=== PATIENT | female | born 1975 | race Caucasian/White ===

== ENCOUNTER 2018-02-11 13:08 | Emergency (ER) | payer OTHER ==
[2018-02-11 13:59] VITALS: RESP 18
[2018-02-11] MEDS ORDERED: ONDANSETRON 4 MG/2 ML VIAL IVP STA (14:09)
[2018-02-11] MEDS ORDERED: SODIUM CHLORIDE 0.9% 1,000 ML IV STA (14:09)
[2018-02-11] MEDS ORDERED: KETOROLAC 30 MG/ML 1 ML VIAL IVP STA (14:11)
--- NOTE | 2018-02-11 14:27 | ED ---
Abdominal Pain HPI - General Chief Complaint: Abdominal Pain Stated Complaint: flank/back pain Time Seen by Provider: 02/11/18 14:02 Source: patient, RN notes reviewed Mode of arrival: ambulatory Limitations: no limitations - History of Present Illness Initial Comments: This a 42-year-old female presents emergency Department chief complaint of left flank pain. Patient states started on Sunday that she was just constipated so she took some magnesium citrate she did go the bathroom states that she did not have complete relief of her symptoms she has not been about bowel movements stents. Patient understood care yesterday gets felt nauseated and flank pain. She had a urinalysis given Zofran upon discharge. Patient states that she's had no fever no chills no dysuria no hematuria. She's had a prior tubal ligation no other abdominal surgeries. Patient has a chest pain or shortness of breath. - Related Data Previous Rx's Medication Instructions Recorded Hydrocodone/Acetaminophen [[place] 1 tab PO Q6HR PRN #12 tab 02/11/18 5-325] Ondansetron Odt [Zofran Odt] 4 mg PO Q8HR PRN #10 tab 02/11/18 Tamsulosin [Flomax] 0.4 mg PO DAILY #7 cap 02/11/18 Allergies Allergy/AdvReac Type Severity Reaction Status Date / Time naproxen [From Naprosyn] Allergy Unknown Verified 02/11/18 14:23 oxaprozin [From Daypro] Allergy Unknown Verified 02/11/18 14:23 Review of Systems ROS Statement: Those systems with pertinent positive or pertinent negative responses have been documented in the HPI. ROS Other: All systems not noted in ROS Statement are negative. Past Medical History Past Medical History: No Reported History History of Any Multi-Drug Resistant Organisms: None Reported Past Surgical History: Ear Surgery, Tubal Ligation Past Psychological History: ADD/ADHD, Bipolar Smoking Status: Never smoker Past Alcohol Use History: None Reported Past Drug Use History: None Reported General Exam Limitations: no limitations General appearance: alert, in no apparent distress Head exam: Present: atraumatic, normocephalic, normal inspection Respiratory exam: Present: normal lung sounds bilaterally. Absent: respiratory distress, wheezes, rales, rhonchi, stridor Cardiovascular Exam: Present: regular rate, normal rhythm, normal heart sounds. Absent: systolic murmur, diastolic murmur, rubs, gallop, clicks GI/Abdominal exam: Present: soft (Mild left-sided left flank), tenderness, normal bowel sounds. Absent: distended, guarding, rebound, rigid Back exam: Present: full ROM, CVA tenderness (L), paraspinal tenderness. Absent : CVA tenderness (R), vertebral tenderness Neurological exam: Present: alert, oriented X3, CN II-XII intact, reflexes normal. Absent: motor sensory deficit Skin exam: Present: warm, dry, intact, normal color. Absent: rash Course Vital Signs 02/11/18 13:56 Temperature 97.4 F L Pulse Rate 54 L Respiratory 18 Rate Blood Pressure 175/87 O2 Sat by Pulse 98 Oximetry Medical Decision Making - Medical Decision Making 42-year-old female presented emergency department for left flank pain. Patient is found to have obstructing 3 mm UVJ stone. Patient has essentially normal kidney function at this time. She'll be discharged on pain medication, Flomax and antiemetics. Patient will follow-up with on-call urology. She also was informed that she had some findings of her spleen on CT she'll need to follow palpation for further evaluation. - Lab Data Result diagrams: 02/11/18 14:30 02/11/18 14:30 Lab Results 02/11/18 02/11/18 02/11/18 Range/Units 14:30 14:30 14:30 WBC 12.9 H (3.8-10.6) k/uL RBC 4.73 (3.80-5.40) m/uL Hgb 13.7 (11.4-16.0) gm/dL Hct 38.1 (34.0-46.0) % MCV 80.6 (80.0-100.0) fL MCH 28.9 (25.0-35.0) pg MCHC 35.8 (31.0-37.0) g/dL RDW 13.1 (11.5-15.5) % Plt Count 228 (150-450) k/uL Neutrophils % 87 % Lymphocytes % 7 % Monocytes % 5 % Eosinophils % 1 % Basophils % 0 % Neutrophils # 11.2 H (1.3-7.7) k/uL Lymphocytes # 0.9 L (1.0-4.8) k/uL Monocytes # 0.7 (0-1.0) k/uL Eosinophils # 0.1 (0-0.7) k/uL Basophils # 0.0 (0-0.2) k/uL Sodium 140 (137-145) mmol/L Potassium 3.8 (3.5-5.1) mmol/L Chloride 99 (98-107) mmol/L Carbon Dioxide 28 (22-30) mmol/L Anion Gap 13 mmol/L BUN 20 H (7-17) mg/dL Creatinine 1.09 H (0.52-1.04) mg/dL Est GFR (CKD-EPI)AfAm 73 (>60 ml/min/1.73 sqM) Est GFR (CKD-EPI)NonAf 64 (>60 ml/min/1.73 sqM) Glucose 98 (74-99) mg/dL Calcium 9.5 (8.4-10.2) mg/dL Total Bilirubin 0.8 (0.2-1.3) mg/dL AST 17 (14-36) U/L ALT 33 (9-52) U/L Alkaline Phosphatase 115 (38-126) U/L Total Protein 6.7 (6.3-8.2) g/dL Albumin 4.0 (3.5-5.0) g/dL Amylase <30 L (30-110) U/L Lipase 57 (23-300) U/L Urine Color Yellow Urine Appearance Cloudy H (Clear) Urine pH 6.5 (5.0-8.0) Ur Specific [place] 1.020 (1.001-1.035) Urine Protein Trace H (Negative) Urine Glucose (UA) Negative (Negative) Urine Ketones 1+ H (Negative) Urine Blood Negative (Negative) Urine Nitrite Negative (Negative) Urine Bilirubin Negative (Negative) Urine Urobilinogen <2.0 (<2.0) mg/dL Ur Leukocyte Esterase Small H (Negative) Urine WBC 1 (0-5) /hpf Ur Squamous Epith Cells 2 (0-4) /hpf Amorphous Sediment Rare H (None) /hpf Urine Bacteria Rare H (None) /hpf Urine Mucus Rare H (None) /hpf Disposition Clinical Impression: Ureteral calculi, Hydronephrosis with renal and ureteral calculous obstruction , Flank pain Disposition: HOME SELF-CARE Condition: Stable Instructions: Kidney Stones (ED) Additional Instructions: Please return to the Emergency Department if symptoms worsen or any other concerns. Prescriptions: Hydrocodone/Acetaminophen [[place] 5-325] 1 tab PO Q6HR PRN #12 tab PRN Reason: Pain Ondansetron Odt [Zofran Odt] 4 mg PO Q8HR PRN #10 tab PRN Reason: Nausea Tamsulosin [Flomax] 0.4 mg PO DAILY #7 cap Is patient prescribed a controlled substance at d/c from ED?: Yes If prescribed controlled substance>3 days was MAPS reviewed?: No When asked, does pt state using other controlled substances?: No Referrals: Fely Maddox DO [Primary Care Provider] - 1-2 days Rui Miguel MD [STAFF PHYSICIAN] - 1-2 days Time of Disposition: 16:35
[2018-02-11] MEDS ORDERED: RX INFO: IV CONTRAST WAS GIVEN 1 EACH MISC MISCELLANE PRN (15:01)
[2018-02-11 15:07] LABS: Basophils % (A) 0 %; Eosinophils # (A) 0.1 k/uL (0-0.7); Eosinophils % (A) 1 %; HCT 38.1 % (34.0-46.0); HGB 13.7 gm/dL (11.4-16.0); Lymphocytes # (A) 0.9 k/uL (1.0-4.8); Lymphocytes % (A) 7 %; MCH 28.9 pg (25.0-35.0); MCHC 35.8 g/dL (31.0-37.0); MCV 80.6 fL (80.0-100.0); Mean Platelet Volume 7.4; Monocytes # (A) 0.7 k/uL (0-1.0); Monocytes % (A) 5 %; Neutrophils # (A) 11.2 k/uL (1.3-7.7); Neutrophils % (A) 87 %; Platelet Count 228 k/uL (150-450); RBC 4.73 m/uL (3.80-5.40); RDW 13.1 % (11.5-15.5); WBC 12.9 k/uL (3.8-10.6)
[2018-02-11 15:10] LABS: Amorphous Sediment,Urine Rare /hpf; Appearance,Urine Cloudy (Clear); Bacteria,Urine Rare /hpf; Bilirubin,Urine Negative (Negative); Blood,Urine Negative (Negative); Color,Urine Yellow; Glucose,Urine (UA) Negative (Negative); Ketones,Urine 1+ (Negative); Leukocyte Esterase,Urine Small (Negative); Mucus,Urine Rare /hpf; Nitrite,Urine Negative (Negative); PH, Urine 6.5 (5.0-8.0); Protein,Urine Trace (Negative); Squamous Epithelial Cell,Urine 2 /hpf (0-4); Urobilinogen,Urine <2.0 mg/dL (<2.0); WBC,Urine 1 /hpf (0-5)
[2018-02-11 15:14] LABS: ALT 33 U/L (9-52); AST 17 U/L (14-36); Alkaline Phosphatase 115 U/L (38-126); Amylase <30 U/L (30-110); Anion Gap 13 mmol/L; Blood Urea Nitrogen 20 mg/dL (7-17); Calcium 9.5 mg/dL (8.4-10.2); Carbon Dioxide 28 mmol/L (22-30); Chloride 99 mmol/L (98-107); Glucose 98 mg/dL (74-99); Lipase 57 U/L (23-300); Potassium 3.8 mmol/L (3.5-5.1); Sodium 140 mmol/L (137-145); Total Bilirubin 0.8 mg/dL (0.2-1.3); Total Protein 6.7 g/dL (6.3-8.2)
--- NOTE | 2018-02-11 15:18 | XR ---
EXAMINATION TYPE: XR KUB DATE OF EXAM: 02/11/2018 2:59 PM CLINICAL HISTORY: Left lower quadrant pain and constipation for 2 days. TECHNIQUE: Two Upright KUB images of the abdomen are obtained. COMPARISON: None. FINDINGS: Scattered gas is seen in non-distended stomach and small bowel loops. Gas and fecal materia l is seen in non-distended colon. Tubal ligation clips are present in the pelvis. Cardiomegaly is john pected. Visualized osseous structures are intact. No pneumoperitoneum or suspicious calcifications ar e seen. IMPRESSION: Overall nonobstructive bowel gas pattern.
--- NOTE | 2018-02-11 16:23 | CT ---
EXAMINATION TYPE: CT abdomen pelvis w con DATE OF EXAM: 02/11/2018 HISTORY: Low back pain and constipation CT DLP: 996.7mGycm Automated Exposure Control for Dose Reduction was Utilized. CONTRAST: CT scan of the abdomen and pelvis is performed with IV Contrast, patient injected with 100 mL of Isov ue 300. COMPARISON: None. FINDINGS: LUNG BASES: There is minimal bibasilar subsegmental dependent atelectasis. LIVER/GB: Hyperattenuated hepatic lesion is seen within the inferior right hepatic lobe on series 3 i mage 38 measuring 1.1 cm. This could represent a hemangioma, or arterial portal shunt, or other neopl asm. No other focal hepatic lesions are seen. Gallbladder is unremarkable. PANCREAS: No significant abnormality is seen. SPLEEN: The spleen approaches criteria for splenomegaly in longitudinal dimension measuring 13.8 cm h owever in craniocaudal dimension and is not enlarged measuring 12.0 cm. Multiple hypoattenuated splen ic lesions are nonspecific and measure up to 7 mm. ADRENALS: No significant abnormality is seen. KIDNEYS: There is moderate left hydroureteronephrosis secondary to an obstructing distal 3 mm calculu s near the ureterovesicular junction. There are additional at least 10 nonobstructing left renal calc ella measuring up to 4 mm. On the right there is a 3 mm right upper pole renal calculus and 3 mm right lower pole renal calculus. No hydronephrosis. Too small to accurately characterize bilateral renal c ortical lesions are seen. There is delayed enhancement and excretion of the left kidney likely due to the acute obstruction. BOWEL: Surgical clips is noted near the rectosigmoid junction. Scattered colonic diverticula are pres ent without pericolonic fat stranding. No dilated bowel to indicate obstruction. Appendix is air-fill ed and within normal limits. UTERUS/ADNEXA: No gross abnormality seen. LYMPH NODES: No greater than 1cm abdominal or pelvic lymph nodes are appreciated. OSSEOUS STRUCTURES: Left femoral head probable bone island is seen. IMPRESSION: 1. Findings most indicative of acute obstructive uropathy with left-sided 3 mm calculus at the ureter ovesicular junction creating moderate left hydroureteronephrosis and delayed renal enhancement and ex cretion likely on the basis of acute obstruction and edema. 2. Bilateral nonobstructing renal calculi (up to 10 in the left and up to 2 on the right). 3. Prominent size of spleen with multiple nonspecific hypoattenuated splenic lesions and hyperdense l ikely arterial enhancing hepatic lesion. This could represent an arterial portal shunt or hemangioma. Further characterization for both of these findings is recommended with nonemergent three-phase enha nced abdominal CT or MR.
[2018-02-11 16:48] VITALS: BP 146/79; PULSE 78; TEMP 98.6
== END 2018-02-11 16:48 | disposition home or self-care (01) ==
LOC: EC 13:08
DX: N13.2 Hydronephrosis with renal and ureteral calculous obstruction (principal); K59.00 Constipation, unspecified; Z88.6 Allergy status to analgesic agent; Z98.51 Tubal ligation status
CPT/HCPCS: 36415; 80053; 82150; 83690; 85025; 81001; 74018; 74177; 99284; 96374; 96375; 96361 ×2; J2405; J1885; Q9967

== ENCOUNTER → 2022-03-16 | Outpatient (CLI) | payer OTHER ==
--- NOTE | 2022-03-16 13:17 | CT ---
EXAMINATION TYPE: CT abdomen w con DATE OF EXAM: 03/16/2022 COMPARISON: CT dated 02/11/2018 HISTORY: abdominal masses CT DLP: 1214.9 mGycm Automated exposure control for dose reduction was used. TECHNIQUE: Helical acquisition of images was performed from the lung bases through the top of iliac crest to include entire abdomen. CONTRAST: Performed without Oral Contrast and with IV Contrast, patient injected with 70 mL of Isovue 300. FINDINGS: LUNG BASES: No significant abnormality is appreciated. LIVER/GB: No definite hepatic focal lesion. The gallbladder is not distended possibly due to incomple te fasting. PANCREAS: No significant abnormality is seen. SPLEEN: Scattered splenic hypodensities, seen in the venous phase and not seen in the delayed images, measuring up to 14 mm, also appreciated previously. They are incompletely characterized by this CT s can. ADRENALS: No significant abnormality is seen. KIDNEYS: 7 mm obstructing stone seen in the left mid ureter causing left-sided hydroureter and hydron ephrosis. Multiple other scattered millimetric bilateral nonobstructing renal calculi. Bilateral nila l hypodensities, likely representing renal cysts. No right-sided hydronephrosis or hydronephrosis. BOWEL: Unremarkable stomach, duodenum and visualized small bowel. Scattered uncomplicated colonic di verticulosis. Normal appendix. LYMPH NODES: No pathologically enlarged abdominal lymph nodes. OSSEOUS STRUCTURES: Bilateral L4-5 facet osteoarthropathy with grade 1 anterolisthesis of L4 over L5 . FREE AIR: No free air is visualized. OTHER: No sizable abdominal ascites. IMPRESSION: 7 mm left mid ureteric obstructing stone as described above, please correlate clinically and with uri nalysis results. Further urology consultation can be considered if clinically required. Other scatter ed bilateral nonobstructing millimetric renal calculi. Scattered ill-defined splenic hypodensities, appreciated only in the venous phase and could represent splenic hemangiomas, seen previously and suboptimally assessed by this CT scan. Other findings as de scribed above.
== END | disposition home or self-care (01) ==
LOC: RADCTMAIN 11:48
PROVIDERS: ATTEND Family Medicine
DX: N20.0 Calculus of kidney (principal)
CPT/HCPCS: 74160; Q9967

== ENCOUNTER → 2024-04-07 | Day surgery (SDC) | payer OTHER ==
[~2024-04-07] MED LIST: PROPOFOL 10 MG/ML 20 ML VIAL IV ONE
[2024-04-07 14:53] VITALS: TEMP 97.1
[2024-04-07] MEDS: LACTATED RINGERS 1,000 ML IV SCH (14:59)
[2024-04-07] MEDS: IV FLUID CONTINUATION 1,000 ML IV ONE (15:00)
--- NOTE | 2024-04-07 16:59 | P.GSHP ---
History of Present Illness H&P Date: 04/07/24 Chief Complaint: screening colonoscopy this a 48-year-old female presents today for screening colonoscopy. Patient denies a significant GI complaints. Past Medical History Past Medical History: No Reported History History of Any Multi-Drug Resistant Organisms: None Reported Past Surgical History: Ear Surgery, Tubal Ligation Past Psychological History: ADD/ADHD, Bipolar Past Alcohol Use History: None Reported Past Drug Use History: None Reported Medications and Allergies Home Medications Medication Instructions Recorded Confirmed Type Hydrocodone/Acetaminophen [[place] 1 tab PO Q6HR PRN #12 tab 02/11/18 Rx 5-325] Ondansetron Odt [Zofran Odt] 4 mg PO Q8HR PRN #10 tab 02/11/18 Rx Tamsulosin [Flomax] 0.4 mg PO DAILY #7 cap 02/11/18 Rx Allergies Allergy/AdvReac Type Severity Reaction Status Date / Time naproxen [From Naprosyn] Allergy Unknown Verified 02/11/18 14:23 oxaprozin [From Daypro] Allergy Unknown Verified 02/11/18 14:23 Surgical - Exam Vital Signs Temp Pulse Resp BP Pulse Ox 97.1 F L 57 L 18 174/74 97 04/07/24 14:43 04/07/24 14:43 04/07/24 14:43 04/07/24 14:43 04/07/24 14:43 - General well developed, well nourished, no distress - Eyes PERRL - ENT normal pinna - Neck no masses - Respiratory normal expansion - Cardiovascular Rhythm: regular - Abdomen Abdomen: soft, non tender Assessment and Plan Assessment: we'll perform screening colonoscopy.
--- NOTE | 2024-04-07 17:10 | P.OP ---
Date of Procedure: 04/07/24 Preoperative Diagnosis: screening colonoscopy Postoperative Diagnosis: diverticulosis Procedure(s) Performed: colonoscopy Anesthesia: MAC Surgeon: Beau Gates Pathology: none sent Condition: stable Disposition: PACU Description of Procedure: the patient's placed on the endoscopy table in the lateral position. She received IV sedation. Digital rectal exam performed. This revealed no abnormalities. The flexible colonoscope was then placed patient anus and passed throughout the entire colon. The ileocecal valve was visualized. The cecum, ascending and transverse colon appeared normal. In the descending and; there is moderate diverticulosis. Scope was then brought back the rectum and this appeared normal. Scope was withdrawn for patient.
[2024-04-07 17:17] VITALS: RESP 16
[2024-04-07 17:31] VITALS: BP 166/82; PULSE 60
== END ==
LOC: ORWHC2ENDO 14:11
PROVIDERS: ATTEND Surgery
DX: Z12.11 Encounter for screening for malignant neoplasm of colon (principal); K57.30 Diverticulosis of large intestine without perforation or abscess without bleeding; F90.9 Attention-deficit hyperactivity disorder, unspecified type; F31.9 Bipolar disorder, unspecified; Z88.6 Allergy status to analgesic agent; Z98.51 Tubal ligation status; Z88.1 Allergy status to other antibiotic agents; Z79.899 Other long term (current) drug therapy
CPT/HCPCS: 81025; 45378; J2704

== ENCOUNTER → 2024-12-19 | Outpatient (CLI) | payer OTHER ==
--- NOTE | 2024-12-19 18:41 | MR ---
INDICATION: Patient age:Female; 49 years old; Reason for study: R51.9 HEADACHE, UNSPECIFIED H53.9; PHH. COMPARISON: CT brain 09/24/2015. TECHNIQUE: Multi planar, multi sequence imaging was performed through the brain. The patient was then given 9 cc of Gadobutrol intravenously and multi planar, T1 fat-saturation images were obtained. FINDINGS: Motion degraded examination. The bunch-white junctions, ventricular system, basal cisterns appear unremarkable. Age-appropriate cer ebral parenchymal volume. Diffusion-weighted imaging shows no evidence of restricted diffusion to sug gest acute/subacute infarct. Intracranial arterial flow voids are maintained. Anterior falx calcifica tions. Midline structures show no abnormality. Couple of bilateral frontal lobe subcortical white mat ter T2/FLAIR hyperintense foci with the right measuring up to 2 mm (series 601, image 23) and the lef t measuring 2 mm (series 601, image 26). The susceptibility weighted images do not reveal any evidenc e for micro-hemorrhage. Incidental developmental venous anomaly within the right frontal lobe periven tricular white matter. After administration of gadolinium, no abnormal enhancement is seen. The bone marrow signal is within normal limits. The globes are unremarkable. Mild mucosal thickening of the ethmoid sinuses. IMPRESSION: 1. No evidence of intracranial mass, acute/subacute infarct, or abnormal enhancement. 2. Couple of nonspecific bilateral frontal white matter changes. Etiologies include small vessel isch emic disease, demyelinating disease, chronic migraines, vasculitis, Lyme disease or other considerati ons. [facility], , 12/19/2024 6:39 PM
== END | disposition home or self-care (01) ==
LOC: RADMRIMAIN 17:22
PROVIDERS: ATTEND Family Medicine
DX: L95.9 Vasculitis limited to the skin, unspecified (principal); R90.82 White matter disease, unspecified; H53.9 Unspecified visual disturbance; G43.909 Migraine, unspecified, not intractable, without status migrainosus
CPT/HCPCS: 70553; A9585